=== PATIENT | female | born 2005 ===

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

== ENCOUNTER 2024-09-23 00:24 | Emergency (ER) | payer SELFPAY ==
[~2024-09-23] VITALS: Ht 157.5 cm; Wt 80.0 kg
[~2024-09-23 00:24] MED LIST: ONDANSETRON4 MG PO
[2024-09-23] MEDS ORDERED: ONDANSETRON HCl 4 MG/2 ML SDV IV ONE (01:05)
[2024-09-23] MEDS ORDERED: MORPHINE SULFATE 4 MG/ML VIAL IV ONE ×2 (01:05→02:50)
[2024-09-23 01:06] LABS: BASO% 0.1 % (0-3); EOS% 0.3 % (0-8); IMMATURE GRANULOCYTES 0.4 % (0.0-5.0); MEAN CELL VOLUME 90.2 fL CALC (80.0-100.0); MEAN CORPUSCULAR HGB 29.6 pG CALC (26.0-32.0); MEAN CORPUSCULAR HGB CONC 32.8 g/dL CAL (32.0-36.0); MONO% 4.6 % (2-13); NEUT# 15.53 thou/uL (2.00-7.15); NEUT% 85.6 % (42-76); RED BLOOD COUNT 3.68 mill/uL (4.20-5.60); RED CELL DISTRI WIDTH 14.3 % (11.5-15.5)
[2024-09-23 01:07] LABS: HEMATOCRIT 33.2 % (37.0-47.0); HEMOGLOBIN 10.9 g/dl (12.0-16.0)
[2024-09-23] MEDS ORDERED: SODIUM CHLORIDE 0.9% 1,000 ML IV ONE (01:10)
[2024-09-23 01:24] LABS: CREATININE 0.6 mg/dL (0.5-1.0); POTASSIUM 3.6 mmol/l (3.5-5.1); TOTAL PROTEIN 7.5 g/dL (6.3-8.2)
[2024-09-23 01:25] LABS: BILIRUBIN, TOTAL 0.3 mg/dL (0.02-1.3)
[2024-09-23 03:07] LABS: URINE BILIRUBIN - DIPSTICK Negative (NEGATIVE); URINE BLOOD DIPSTICK Negative (NEGATIVE); URINE COLOR Yellow; URINE GLUCOSE - DIPSTICK Negative (NEGATIVE); URINE KETONE 80 mg/dL (NEGATIVE); URINE LEUK ESTERASE Negative (NEGATIVE); URINE NITRITE - DIPSTICK Negative (Negative); URINE PH 7.5 (4.5-8.0); URINE PROTEIN - DIPSTICK Negative (NEG-TRACE); URINE UROBILINOGEN - DIPSTICK 0.2 E.U./dL (0.2)
[2024-09-23 03:40] VITALS: BP 104/61
[2024-09-23 04:15] VITALS: BP 104/61
== END 2024-09-23 04:15 | DRG 833 ==
LOC: ED 00:24
PROVIDERS: Emergency Medicine
DX: O26.892 Other specified pregnancy related conditions, second trimester (principal); R10.9 Unspecified abdominal pain; Z3A.26 26 weeks gestation of pregnancy
CPT/HCPCS: J2405